=== PATIENT | female | born 1965 | race Caucasian/White ===

== ENCOUNTER 2020-05-24 13:21 | Emergency (ER) | payer MEDICAID, OTHER ==
[~2020-05-24] VITALS: Ht 147.3 cm; Wt 81.4 kg
[2020-05-24 13:28] VITALS: BP 120/73
--- NOTE | 2020-05-24 13:37 | NUR ---
Patient to bed 6. RN evaluating the patient at bedside.
[2020-05-24] MEDS ORDERED: KETOROLAC 30 MG/ML VIAL IM ONE (13:50)
[2020-05-24] MEDS ORDERED: IBUP-2213 PO (13:59)
--- NOTE | 2020-05-24 14:08 | NUR ---
54 YEAR OLD FEMALE COMPLAINS OF LEFT KNEE PAIN X 1 WEEK. PT DENIES TRAUMA. PT AOX4, BREATHING EVEN AND UNLABORED, SKIN WARM AND DRY. BED IN LOWEST POSITION, SEMI-FOWLERS, LOCKED, BED RAIL UPX1 PMH - DM2, ARTHRITIS ALLERGIES - KEFLEX
--- NOTE | 2020-05-24 14:16 | NUR ---
Patient discharged with v/s stable. Written and verbal after care instructions about arthritis given and explained. Patient alert, oriented and verbalized understanding of instructions. Ambulatory with steady gait. All questions addressed prior to discharge. ID band removed. Patient advised to follow up with PMD. Rx of ibuprofen given. Patient educated on indication of medication including possible reaction and side effects. Opportunity to ask questions provided and answered.
== END 2020-05-24 14:16 | disposition home or self-care (01) ==
LOC: MED 13:21
DX: M13.80 Other specified arthritis, unspecified site (principal); E11.9 Type 2 diabetes mellitus without complications; Z88.1 Allergy status to other antibiotic agents
CPT/HCPCS: 96372; 99283; J1885